=== PATIENT | male | born 1935 | race Asian ===

== ENCOUNTER 2020-02-11 16:19 | Inpatient (IN) | payer MEDICARE, MEDICAID ==
[~2020-02-11] VITALS: Ht 160 cm; Wt 63.0 kg
[2020-02-11 16:25] VITALS: BP 110/86
--- NOTE | 2020-02-11 16:28 | Emergency Room Report ---
History of Present Illness General Chief Complaint: Generalized Weakness Source: Patient, EMS Present Illness HPI Patient presents with 5 days of left upper quadrant pain. He has not been eating. He denies any vomiting or diarrhea. He has been moving his bowels but less so as he is not eating. He denies any fevers or chills. There is no sore throat, cough. In an assisted living facility. Patient denies pain to the triage nurse. Patient is unable to characterize pain or describe pain level. Patient has a history of diabetes, hypertension and cardiac disease. Patient takes oral hypoglycemics as well as insulin. POLST has selective treatment. No chest pain, palpitations, nausea, vomiting, diarrhea, dysuria, shortness of breath, joint pain, rashes, depression, anxiety, visual changes, dizziness, headache. Patient is a poor historian. Allergies: Coded Allergies: No Known Allergies (Unverified , 02/11/20) COVID-19 Screening Contact w/high risk pt: No Recent Travel to affected area: No Experienced COVID-19 symptoms?: No Patient History Limited by: medical condition Past Medical History: see triage record Social History: Denies: smoking, alcohol use, drug use Social History Narrative Assisted living Reviewed Nursing Documentation: PMH: Agreed; PSxH: Agreed Review of Systems All Other Systems: negative except mentioned in HPI Physical Exam Vital Signs Date Time Temp Pulse Resp B/P (MAP) Pulse Ox O2 Delivery O2 Flow Rate FiO2 02/11/20 16:10 96.4 110 20 110/86 (94) 95 Room Air Sp02 EP Interpretation: reviewed, normal General Appearance: well appearing, no apparent distress, alert, non-toxic, thin, Chronically Ill Head: normocephalic, atraumatic Eyes: bilateral eye normal inspection, bilateral eye PERRL, bilateral eye EOMI ENT: moist mucus membranes Neck: full range of motion, supple Respiratory: chest non-tender, lungs clear, normal breath sounds Cardiovascular #1: regular rate, rhythm, no edema Cardiovascular #2: 2+ radial (L) Gastrointestinal: normal inspection, normal bowel sounds, no mass, non- distended, no guarding, no rebound, tenderness - Minimal Genitourinary: no CVA tenderness Musculoskeletal: back normal, normal range of motion, gait/station normal Neurologic: alert, motor strength/tone normal, oriented - X2, sensory intact, speech normal, grossly normal Psychiatric: mood/affect normal Skin: no rash, warm/dry Procedures Critical Care Time Critical Care Time Total Critical Care Time: 30 min bedside evaluation and treatment excludes procedures (EKG). Reason for critical care: sepsis, pancreatitis, hyperglycemia Possible complications: hypotension, hypertension, ND, shock, arrhythmias, metabolic acidosis, end organ damage, respiratory failure. Interventions: fluid resuscitation, repeat evaluations, antibiotics, CT, ultrasound, discussion with family, repeat accucheck Course: Patient presents with abdominal pain, anorexia and tachycardia. Evaluation reveals leukocytosis and elevated lactic acid. Fluid resuscitation initiated. Antibiotics ordered to cover abdominal source. Repeat Accu-Cheks with improvement in hyperglycemia. Repeat evaluations with denial of pain. CT nonsurgical. Ultrasound nonsurgical. Discussion with family twice. Discussion with admitting physician. Repeat lactic acid normal. Consultations: nursing staff, EMS, family, admitting physician Performed by: Dr. Kelsey Tolerated well condition = serious Medical Decision Making Diagnostic Impression: Primary Impression: Sepsis Qualified Codes: A41.9 - Sepsis, unspecified organism; R65.20 - Severe sepsis without septic shock; N17.9 - Acute kidney failure, unspecified Additional Impressions: Abdominal pain Qualified Codes: R10.12 - Left upper quadrant pain Hyperglycemia ARF (acute renal failure) Qualified Codes: N17.9 - Acute kidney failure, unspecified Pancreatitis Qualified Codes: K85.90 - Acute pancreatitis without necrosis or infection, unspecified ER Course Patient presents with left upper quadrant pain and weakness with tachycardia. Differential includes diverticulitis, pancreatitis, urinary tract infection, acute myocardial infarction amongst others. Evaluation with EKG, chest x-ray, CT of the abdomen and pelvis with contrast and labs. Patient treated with IV hydration. Repeat evaluation to determine whether analgesia as needed. EKG sinus tachycardia rate [address]-T wave changes. Accucheck 365. Will recheck after bolus. Discussed with grandson. ARF. No contrast. Called 1825 - elevated lactic acid. Rest of 30 ml/kg bolus given, blood cultures ordered and antibiotics ordered. Capillary refill normal. Unchanged mentation. No hypotension. (Sepsis reevaluation.) Elevated lipase. Abd soft. 1835 After bolus, accucheck 201. 1938. CT no surgical pathology. Discussed with son again. Ordered ultrasound. Repeat lactic acid normal. Ultrasound no surgical pathology. Admitted stepdown unit Dr. Mccracken. Laboratory Tests Test 02/11/20 17:25 02/11/20 19:40 White Blood Count 16.3 K/UL (4.8-10.8) H Red Blood Count 3.28 M/UL (4.70-6.10) L Hemoglobin 10.3 G/DL (14.2-18.0) L Hematocrit 30.7 % (42.0-52.0) L Mean Corpuscular Volume 94 FL (80-99) Mean Corpuscular Hemoglobin 31.4 PG (27.0-31.0) H Mean Corpuscular Hemoglobin Concent 33.6 G/DL (32.0-36.0) Red Cell Distribution Width 12.3 % (11.6-14.8) Platelet Count 201 K/UL (150-450) Mean Platelet Volume 7.3 FL (6.5-10.1) Neutrophils (%) (Auto) 77.9 % (45.0-75.0) H Lymphocytes (%) (Auto) 8.9 % (20.0-45.0) L Monocytes (%) (Auto) 12.7 % (1.0-10.0) H Eosinophils (%) (Auto) 0.0 % (0.0-3.0) Basophils (%) (Auto) 0.6 % (0.0-2.0) Prothrombin Time 11.5 SEC (9.30-11.50) Prothrombin Time INR 1.1 (0.9-1.1) Activated Partial Thromboplast Time 24 SEC (23-33) Urine Color Pale yellow Urine Appearance Clear Urine pH 5 (4.5-8.0) Urine Specific [place] 1.010 (1.005-1.035) Urine Protein 1+ (NEGATIVE) H Urine Glucose (UA) 4+ (NEGATIVE) H Urine Ketones Negative (NEGATIVE) Urine Blood Negative (NEGATIVE) Urine Nitrite Negative (NEGATIVE) Urine Bilirubin Negative (NEGATIVE) Urine Urobilinogen Normal MG/DL (0.0-1.0) Urine Leukocyte Esterase Negative (NEGATIVE) Urine RBC 0-2 /HPF (0 - 0) H Urine WBC 0-2 /HPF (0 - 0) Urine Squamous Epithelial Cells None /LPF (NONE/OCC) Urine Bacteria Few /HPF (NONE) Urine Yeast Few /HPF (NONE) H Sodium Level 149 MMOL/L (136-145) H Potassium Level 4.3 MMOL/L (3.5-5.1) Chloride Level 110 MMOL/L (98-107) H Carbon Dioxide Level 25 MMOL/L (21-32) Anion Gap 14 mmol/L (5-15) Blood Urea Nitrogen 57 mg/dL (7-18) H Creatinine 2.1 MG/DL (0.55-1.30) H Estimated Glomerular Filtration Rate 30.3 mL/min (>60) Glucose Level 367 MG/DL (74-106) H Lactic Acid Level 5.30 mmol/L (0.4-2.0) H 1.80 mmol/L (0.66-2.22) Calcium Level 9.8 MG/DL (8.5-10.1) Phosphorus Level 4.3 MG/DL (2.5-4.9) Magnesium Level 3.1 MG/DL (1.8-2.4) H Total Bilirubin 1.4 MG/DL (0.2-1.0) H Direct Bilirubin 0.4 MG/DL (0.0-0.3) H Aspartate Amino Transferase (AST) 23 U/L (15-37) Alanine Aminotransferase (ALT) 31 U/L (12-78) Alkaline Phosphatase 77 U/L (46-116) Total Creatine Kinase 174 U/L (26-308) Troponin I 0.040 ng/mL (0.000-0.056) Pro-B-Type Natriuretic Peptide 755 pg/mL (0-125) H Total Protein 7.1 G/DL (6.4-8.2) Albumin 4.2 G/DL (3.4-5.0) Globulin 2.9 g/dL Albumin/Globulin Ratio 1.4 (1.0-2.7) Lipase 1070 U/L (73-393) H EKG Diagnostic Results Rate: tachycardiac Rhythm: NSR ST Segments: no acute changes Rhythm Strip Diag. Results EP Interpretation: yes Rhythm: no PVC's, no ectopy, other - Sinus tachycardia Chest X-Ray Diagnostic Results Chest X-Ray Diagnostic Results : Chest X-Ray Ordered: Yes # of Views/Limited/Complete: 1 View Indication: Other EP Interpretation: Yes Interpretation: no consolidation, no effusion, no pneumothorax Impression: No acute disease Electronically Signed by: Electronically signed by Jewel Kelsey MD CT/MRI/US Diagnostic Results CT/MRI/US Diagnostic Results #1: Imaging Test Ordered: abd/pelvis Impression Mild right basilar atelectasis. Calcified granulomas Coronary calcifications. Mild fatty liver. Subcentimeter right renal cyst. Negative for hydronephrosis. Normal appendix. Mild scattered colonic stool and diverticulosis. Negative for diverticulitis. Mild lumbar spine degenerative change. CT/MRI/US Diagnostic Results #2: Imaging Test Ordered: abd u/s Impression R renal cyst. No stones Last Vital Signs Date Time Temp Pulse Resp B/P (MAP) Pulse Ox O2 Delivery O2 Flow Rate FiO2 02/11/20 22:45 Room Air 02/11/20 22:01 88 02/11/20 21:38 97.8 20 139/83 97 Status: improved Disposition: ADMITTED INPATIENT Condition: Serious Jewel Kelsey MD Feb 11, 2020 16:28
[2020-02-11] MEDS ORDERED: Omnipaque-300 100ml vial INJ PRN (16:30)
--- NOTE | 2020-02-11 16:30 | NUR ---
ED Nurse Note: Patient brought in by ambulance from [facility] d/t generalized body weakness; decrease appetite x 1 week. Per EMS pt has no recent fever, nor cough/diarrhea/vomiting. Pt's on FULL CODE with selective treatment.
[2020-02-11] MEDS ORDERED: OYSTER SHELL 51 EAC2 PO (16:54)
[2020-02-11] MEDS ORDERED: RESTASIS1 EACH BOTH EYES (16:54)
[2020-02-11] MEDS ORDERED: LANTUS SOL100 UNIT/1 SUBQ (16:54)
[2020-02-11] MEDS ORDERED: CLOPIDOGREL75 MG ORAL (16:54)
[2020-02-11] MEDS ORDERED: ASPIR 8181 MG ORAL (16:54)
[2020-02-11] MEDS ORDERED: LOSARTAN POTASS25 MG ORAL (16:54)
[2020-02-11] MEDS ORDERED: FLUTICASONE PRO16 G1 NASAL (16:54)
[2020-02-11] MEDS ORDERED: FERROUS SULFAT325 MG ORAL (16:54)
[2020-02-11] MEDS ORDERED: AMLODIPINE BESYL5 MG ORAL (16:54)
[2020-02-11] MEDS ORDERED: PROBIOTIC1 EAC5 PO (16:54)
[2020-02-11] MEDS ORDERED: B COMPLEX1 EACH ORAL (16:54)
[2020-02-11] MEDS ORDERED: ATORVASTATIN CA10 MG ORAL (16:54)
[2020-02-11] MEDS ORDERED: CLOTRIMAZOLE15 GM TOPIC (16:54)
[2020-02-11] MEDS ORDERED: LYRICA75 M1 ORAL (16:54)
[2020-02-11] MEDS ORDERED: DOCUSATE SODIU100 MG ORAL (16:54)
[2020-02-11] MEDS ORDERED: MECLIZINE HCL25 MG ORAL (16:54)
[2020-02-11] MEDS ORDERED: ZYVOX600 MG ORAL (16:54)
[2020-02-11] MEDS ORDERED: PATADAY2.5 ML OP (16:54)
--- NOTE | 2020-02-11 17:08 | Diagnostic Imaging Report ---
Indication: Shortness of breath Technique: One view of the chest Comparison: none Findings: There is some atelectasis at the right lung base. Lungs and pleural spaces are otherwise clear. The heart size is normal. The aorta is tortuous ectatic and calcified. Impression: No acute process
--- NOTE | 2020-02-11 17:35 | NUR ---
ED Nurse Note: Urine and blood specimen collected and sent to lab. IV fluids running, N/S 1L. Will continue to monitor for results.
[2020-02-11 17:40] VITALS: BP 111/56
[2020-02-11 18:07] LABS: BASOPHILS % (AUTO) 0.6 % (0.0-2.0); HEMATOCRIT 30.7 % (42.0-52.0); HEMOGLOBIN 10.3 G/DL (14.2-18.0); LYMPHOCYTES % (AUTO) 8.9 % (20.0-45.0); MEAN CORPUSCULAR VOLUME 94 FL (80-99); MONOCYTES % (AUTO) 12.7 % (1.0-10.0); NEUTROPHILS % (AUTO) 77.9 % (45.0-75.0); PLATELET COUNT 201 K/UL (150-450); RED BLOOD COUNT 3.28 M/UL (4.70-6.10); RED CELL DISTRIBUTION WIDTH 12.3 % (11.6-14.8); WHITE BLOOD COUNT 16.3 K/UL (4.8-10.8)
[2020-02-11 18:10] LABS: APPEARANCE,URINE CLEAR; BILIRUBIN, URINE NEGATIVE (NEGATIVE); COLOR,URINE PALE YELLOW; GLUCOSE, URINE (UA) 4+ (NEGATIVE); KETONES,URINE NEGATIVE (NEGATIVE); LEUKOCYTE ESTERASE ,URINE NEGATIVE (NEGATIVE); NITRITE,URINE NEGATIVE (NEGATIVE); PH,URINE 5 (4.5-8.0); PROTEIN,URINE 1+ (NEGATIVE); UROBILINOGEN,URINE NORMAL MG/DL (0.0-1.0)
--- NOTE | 2020-02-11 18:12 | NUR ---
ED Nurse Note: Patient is resting with no complaints of pain at this time, tachycardia resolving while on fluids, Will continue to monitor for completion of bolus N/S for repeat Accucheck per ERMD.
[2020-02-11 18:13] LABS: INR 1.1 (0.9-1.1)
[2020-02-11 18:17] LABS: ANION GAP 14 mmol/L (5-15); BLOOD UREA NITROGEN 57 mg/dL (7-18); CALCIUM 9.8 MG/DL (8.5-10.1); CARBON DIOXIDE 25 MMOL/L (21-32); CHLORIDE 110 MMOL/L (98-107); CREATININE 2.1 MG/DL (0.55-1.30); POTASSIUM 4.3 MMOL/L (3.5-5.1); SODIUM 149 MMOL/L (136-145)
[2020-02-11 18:29] LABS: ALANINE AMINOTRANSFERASE 31 U/L (12-78); ALBUMIN 4.2 G/DL (3.4-5.0); ALBUMIN/GLOBULIN RATIO 1.4 (1.0-2.7); ALKALINE PHOSPHATASE 77 U/L (46-116); ASPARTATE AMINO TRANSFERASE 23 U/L (15-37); BILIRUBIN,TOTAL 1.4 MG/DL (0.2-1.0); CREATINE KINASE 174 U/L (26-308); PHOSPHORUS 4.3 MG/DL (2.5-4.9)
[2020-02-11 18:30] LABS: BILIRUBIN,DIRECT 0.4 MG/DL (0.0-0.3)
[2020-02-11] MEDS ORDERED: Piperacillin/Tazobactam 3.375 GM in NS 110 ML IVPB ONE (18:30)
--- NOTE | 2020-02-11 18:47 | NUR ---
ED Nurse Note: Patient went down for CT of abdomen and pelvis without constrast, accompanied by certified bench jeweler technician.
--- NOTE | 2020-02-11 18:55 | NUR ---
ED Nurse Note: Patient returned from CT without complication.
--- NOTE | 2020-02-11 19:15 | NUR ---
ED Nurse Note: received report from Angeline LANDEROS
--- NOTE | 2020-02-11 19:23 | Diagnostic Imaging Report ---
INDICATION: Abdominal pain TECHNIQUE: Continuous helical transaxial imaging of the abdomen and pelvis was obtained from the lung bases to the pubic symphysis. No intravenous contrast was administered. Coronal 2-D reformats were also obtained. Automatic Exposure Control was utilized. Total Dose length Product (DLP): [address] Dose Index Volume (CTDIvol): 4 mGy Comparison: none FINDINGS: Lungs: There is mild posterior basal reticular densities which may be due to a mild degree of scarring or fibrosis. There may be some atelectasis as well.. Liver: Unremarkable Gallbladder/biliary system: No gallstones are identified. There is no evidence of intrahepatic or extrahepatic biliary ductal dilatation. Spleen: Unremarkable Pancreas: Unremarkable Kidneys/Bladder: There is mild perinephric stranding. No renal stones or hydronephrosis are identified. Urinary bladder is unremarkable. Adrenal glands: Unremarkable Bowel: The appendix is normal. The second portion of the duodenum is dilated. There is also suggestion of a periduodenal stranding especially anterior to the right kidney. There is no abscess but the correlate clinically for duodenitis. Consider EGD. There is no free air. Aorta/IVC: The aorta is mildly enlarged in a diffuse fashion. There is calcification of the wall of aorta and iliac arteries. Peritoneum: There is no free fluid.. Bones: There is narrowing of intervertebral discs and accompanying endplate osteophyte formation. Hypertrophied facet joints also demonstrated. IMPRESSION: Dilatation of the second third portion of the duodenum with suggestion of possible periduodenal inflammation. Consider peptic ulcer disease. Duodenitis is not excluded. Consider further evaluation with upper endoscopy. Arterial vascular disease. Mild posterior basilar fibrosis within the lungs. Degenerative changes of the spine. Note: Evaluation of solid organs is limited on non contrast imaging. The CT scanner at [facility] is accredited by the [employer] and the scans are performed using dose optimization techniques as appropriate to a performed exam including Automatic Exposure control.
[2020-02-11 19:30] VITALS: BP 143/72
--- NOTE | 2020-02-11 20:00 | NUR ---
ED Nurse Note: US AT BEDSIDE
[2020-02-11] MEDS ORDERED: Morphine Sulfate 2mg/ml Inj(IV/IM USE ONLY) IVP PRN (20:15)
[2020-02-11] MEDS ORDERED: Nitroglycerin Subl 0.4mg tab SL PRN (20:15)
[2020-02-11] MEDS ORDERED: Acetaminophen 650 MG SUPP RECTAL PRN ×2 (20:15)
--- NOTE | 2020-02-11 20:51 | Diagnostic Imaging Report ---
Indication: Abdominal pain Technique: Grayscale and duplex Doppler imaging of the abdomen performed. Comparison: None Findings: The liver is increased echogenicity. Doppler interrogation of the main portal vein shows patency with hepatopedal, monophasic flow. There is no biliary ductal dilatation identified. Gallbladder is unremarkable. There demonstrated part of the pancreas, aorta and IVC show no definite abnormalities. Both kidneys appear unremarkable. There is no hydronephrosis. There is a small right renal cyst. IMPRESSION: Mild fatty liver Right renal cyst
[2020-02-11] MEDS ORDERED: Miralax 17gm pkt ORAL PRN (21:00)
[2020-02-11 21:38] VITALS: BP 143/72
--- NOTE | 2020-02-11 21:38 | NUR ---
TRANSFER TO FLOOR: Patient transferred to [facility] via [facility] in stable condition as ordered, per dr. Mccracken. Report given to Maya LANDEROS. Belongings sent with patient
--- NOTE | 2020-02-11 22:00 | NUR ---
NURSE NOTES: Pt received from ED, [facility] from [facility] d/t generalized body weakness; decrease appetite x 1 week and admitting dx of abdominal pain.Will input orders and carry out. Currently has NPO diet due to abdominal pain. Pt is alert and oriented on room air, resting in bed , bed is locked in lowest position, side rails x2, will continue to monitor
[2020-02-11] MEDS: NovoLOG Insulin Flexpen SUBQ SCH (23:00)
[2020-02-11] MEDS: Levemir Flexpen SUBQ SCH (23:00)
[2020-02-11] MEDS: Heparin 5000 units/ml inj SUBQ SCH (23:00)
[2020-02-12] MEDS: Piperacillin/Tazobactam 3.375 GM in NS 110 ML IVPB SCH ×5 (06:00→21:12)
[2020-02-12] MEDS: NovoLOG Insulin Flexpen SUBQ SCH ×4 (06:30→21:00)
[2020-02-12 07:24] LABS: BASOPHILS % (AUTO) 0.4 % (0.0-2.0); EOSINOPHILS % (AUTO) 0.3 % (0.0-3.0); HEMATOCRIT 23.9 % (42.0-52.0); HEMOGLOBIN 8.7 G/DL (14.2-18.0); LYMPHOCYTES % (AUTO) 18.7 % (20.0-45.0); MEAN CORPUSCULAR VOLUME 90 FL (80-99); MONOCYTES % (AUTO) 10.7 % (1.0-10.0); NEUTROPHILS % (AUTO) 69.9 % (45.0-75.0); PLATELET COUNT 141 K/UL (150-450); RED BLOOD COUNT 2.66 M/UL (4.70-6.10); RED CELL DISTRIBUTION WIDTH 10.9 % (11.6-14.8); WHITE BLOOD COUNT 10.3 K/UL (4.8-10.8)
--- NOTE | 2020-02-12 07:34 | NUR ---
HAND-OFF: Report given to LETI Gallardo.
[2020-02-12 07:44] LABS: ALANINE AMINOTRANSFERASE 26 U/L (12-78); ALBUMIN 3.2 G/DL (3.4-5.0); ALBUMIN/GLOBULIN RATIO 1.4 (1.0-2.7); ALKALINE PHOSPHATASE 58 U/L (46-116); ANION GAP 13 mmol/L (5-15); ASPARTATE AMINO TRANSFERASE 21 U/L (15-37); BILIRUBIN,TOTAL 1.1 MG/DL (0.2-1.0); BLOOD UREA NITROGEN 36 mg/dL (7-18); CALCIUM 8.1 MG/DL (8.5-10.1); CARBON DIOXIDE 23 MMOL/L (21-32); CHLORIDE 120 MMOL/L (98-107); CREATININE 1.4 MG/DL (0.55-1.30); POTASSIUM 3.8 MMOL/L (3.5-5.1); SODIUM 155 MMOL/L (136-145)
[2020-02-12 07:45] LABS: BILIRUBIN,DIRECT 0.4 MG/DL (0.0-0.3)
[2020-02-12] MEDS ORDERED: Pantoprazole Inj IV SCH (09:00)
[2020-02-12] MEDS: Flonase Nasal Inhaler 16gm NASAL SCH (09:00)
[2020-02-12] MEDS: Heparin 5000 units/ml inj SUBQ SCH (09:00)
[2020-02-12] MEDS: Meclizine 25mg tab ORAL SCH ×3 (10:09→19:01)
[2020-02-12] MEDS: Docusate 100mg cap ORAL SCH ×2 (10:10→19:00)
[2020-02-12] MEDS: Lyrica 50mg cap ORAL SCH ×2 (10:10→19:00)
[2020-02-12] MEDS: Losartan 25mg tab ORAL SCH (10:10)
[2020-02-12] MEDS ORDERED: 1/2NS w/KCl 20mEq 1000ml 1,000 ML IV SCH (13:00)
[2020-02-12] MEDS ORDERED: Nulytely 4L ORAL SCH (14:00)
--- NOTE | 2020-02-12 15:15 | NUR ---
CASE MANAGEMENT: INITIAL REVIEW 84YR OLD MALE BIBA FROM [facility] CC: BODY WEAKNESS X1 WEEK; DECREASE APPETITE SI: SEPSIS . ARF . HYPERGLYCEMIA . PANCREATITIS . ABDOMINAL PAIN 96.4 110 20 110/86 95% ON RA WBC 16.3 H/H 10.3/30.7 NA+ 149 CL-110 BUN 57 CREAT 2.1 MG 3.1 BNP 755 LIPASE 1070 IS:IVF NS BOLUS X2 IV FLAGYL X[address] ABD-possible periduodenal inflammation; Consider EGD US ABD- Subcentimeter right renal partially exophytic midpole cyst CHEST X-RAY- some atelectasis at the right lung base EKG sinus tachycardia rate [address]-T wave changes. \: 2E TELE UNIT DCP: [facility] WHEN STABLE PLAN: EGD IN AM CASE MANAGEMENT: REVIEW 02/12/20 SI: SEPSIS . ARF . HYPERGLYCEMIA . PANCREATITIS . ABDOMINAL PAIN 88 143/72% ON RA H/H 8.7/23.9 PLT 141 NA+ 155 CL-120 BUN 36 CREAT 1.4 CA+ 8.1 MG 3.1 BNP 755 LIPASE 1070 TSH 0.213 IS:IV ZOSYN Q8HR IV NS@125ML/HR COZAAR PO QD LYRICA PO BID NORVASC PO QD ANTIVERT PO TID NULYTELY PO X1 \: 2E TELE UNIT DCP: [facility] WHEN STABLE PLAN: EGD IN AM
[2020-02-12] MEDS ORDERED: D5 1/2NS w/KCl 20mEq 1,000 ML IV SCH (16:00)
--- NOTE | 2020-02-12 16:14 | History and Physical Report ---
DATE OF ADMISSION: 02/11/2020 CHIEF COMPLAINT AND REASON FOR HOSPITALIZATION: The patient admitted with some anorexia, abdominal discomfort, dehydration. HISTORY OF PRESENT ILLNESS: The patient is a resident of an assisted living facility, age 84 who comes in with some vague abdominal discomfort, poor oral intake for 10 days, dehydration, elevated lipase. He had imaging including CT scan in the emergency room, which showed dilation of the second and third portion of the duodenum with suggestion of possible sepideh duodenal inflammation. The liver was unremarkable. Because of the above, he was admitted to the hospital. There is a history of adult onset diabetes, hypertension, and a CVA about 2 years ago. There is a med list that accompanies his chart with note that he got linezolid 316 for 10 days, reason not clear. HABITS: He is a nondrinker and nonsmoker. SURGERIES: None. PAST MEDICAL HISTORY: As above taken from the family. MEDICATIONS: From the facility include clotrimazole betamethasone cream as needed, DSS 100 mg b.i.d., fluticasone nasal spray b.i.d. as needed, meclizine 25 mg t.i.d. as needed, MOM 30 mL p.r.n., pregabalin 50 mg b.i.d. as needed, amlodipine 5 mg daily, aspirin 81 mg daily, atorvastatin 10 mg daily, Plavix 75 mg daily, ferrous sulfate 325 b.i.d., Jardiance 25 mg daily, Lantus 15 units daily, losartan 25 mg b.i.d., Olopatadine 0.1% both eyes daily, calcium and vitamin D3 b.i.d., Restasis stasis eye drops b.i.d., vitamin B complex daily, vitamin D 1000 units daily, probiotic 1 daily. CODE STATUS: Per the son DNR. SYSTEM REVIEW: HEAD, EYES, EARS, NOSE, AND THROAT: History of taking eye drops as above. Apparently, the patient is stable. Hearing appears to be normal. ENDOCRINE: History of diabetes as above. No known thyroid disease. PULMONARY: No history of smoking, chronic cough, or asthma. CARDIAC: He is on cardiac medications as above. He is denying any chest pain. GASTROINTESTINAL: No history of hematochezia or melena. There is some anorexia and constipation. GENITOURINARY: No dysuria, hematuria, or kidney stones. 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 PHYSICAL EXAMINATION: GENERAL: The patient is alert, elderly man, lying in bed, in no acute distress. VITAL SIGNS: Blood pressure 143/72, pulse 88, most recent temperature 97.8, respirations 20. HEAD, EYES, EARS, NOSE, AND THROAT: Oral mucosa slightly dry. Sclerae are nonicteric. NECK: No adenopathy. LUNGS: Clear. HEART: Rhythm is regular. I hear no murmur. ABDOMEN: Soft without organomegaly. I am unable to feel liver or spleen. GENITOURINARY: Penis and testes normal. RECTAL: Deferred to GI technology applications consultant. EXTREMITIES: No edema, cyanosis, or clubbing. NEUROLOGIC: He is alert and responsive. Ocular motions intact in all directions. Smile symmetric. Tongue is midline. He moves all extremities. LABORATORY DATA: Pertinent labs on admission white count 16.3, hemoglobin 10.3, repeat white count 10.3, hemoglobin is 8.7. BUN 57, creatinine 2.1, repeat 36 and 1.4. Sodium 149, repeat is 155. Lactic acid 5.3, repeat 1.8. Calcium is 8.1. Bilirubin total 1.1 and direct 0.4. Troponin 0.04. Albumin 3.2. TSH 0.213, slightly low. Urinalysis shows few red cells, 0 to 2 white cells per high-power field. IMPRESSION: 1. Dehydration. 2. Abdominal pain, nonspecific. Rule out peptic ulcer disease. There is no obvious biliary obstruction or cholecystitis on imaging. 3. Anemia, rule out blood loss. 4. Diabetes, insulin dependent. 5. History of taking medicines, anti-platelet agents aspirin and Plavix. 6. History of CVA. 7. History of hypertension. PLAN: 1. Hydrate the patient intravenously. 2. Follow up on laboratories. 3. GI consultation in view of his complaints and anemia. Veto Mccracken M.D. DR: REED JOB#: [id number] CC:
--- NOTE | 2020-02-12 17:45 | Consultation ---
DATE OF CONSULTATION: 02/12/2020 CONSULTING PHYSICIAN: North Palacio M.D. REFERRING PHYSICIAN: Veto Mccracken M.D. CHIEF COMPLAINT: GI bleeding, abdominal pain. HISTORY OF PRESENT ILLNESS: Most of history is per chart. He is a pleasant 84-year-old [place] male with past medical history of diabetes, hypertension, presented to the hospital with complaint of abdominal pain. Workup showed evidence of anemia. CT showed evidence of possible duodenal ulceration ulceration. GI consult requested for evaluation. PAST MEDICAL HISTORY: 1. History of diabetes. 2. Hypertension. 3. History of coronary artery disease, the patient is on aspirin and Plavix. PAST SURGICAL HISTORY: Unknown. MEDICATIONS: Please see medication reconciliation list. SOCIAL HISTORY: There is no history of tobacco, alcohol, or drug abuse. FAMILY HISTORY: Noncontributory. REVIEW OF SYSTEMS: Limited. PHYSICAL EXAMINATION: VITAL SIGNS: The patient is afebrile, pulse is 88, respirations 20, blood pressure is 143/72. HEENT: Normocephalic and atraumatic. Mild pale conjunctivae. NECK: Supple. No evidence of obvious lymphadenopathy. CARDIOVASCULAR: Regular rate and rhythm. Plus S1 and S2. LUNGS: Decreased breath sounds bilaterally based on supine exam. ABDOMEN: Soft. Bowel sounds are present. Minimal tenderness to palpation in epigastric and right upper quadrant. No rebound. No guarding. No peritoneal sign. EXTREMITIES: No cyanosis. No clubbing. No edema. LABORATORY DATA: White count is 10, hemoglobin 8.7, hematocrit 23, platelet count is 141. ASSESSMENT AND PLAN: This is an 84-year-old male with GI bleeding, possible duodenal bleeding. Plan to give him a clear liquid diet today, NPO after midnight tonight. Plan to do endoscopy and colonoscopy tomorrow. I spoke with the family and son who consented and he agreed. Meanwhile, we will repeat labs tomorrow and transfuse if hemoglobin is less than 7.5. We will also place the patient on PPI. I want to thank, Dr. Mccracken for this kind referral. North Palacio M.D. DR: JEFFRY JOB#: [id number] CC: Veto Mccracken M.D.; Fax#: [phone]
[2020-02-12 20:00] VITALS: BP 142/86
--- NOTE | 2020-02-12 20:00 | NUR ---
NURSE NOTES: Pt is resting quietly in bed. Pt will be NPO after midnight for EGD and colonoscopy. Pt is alert and oriented on room air, resting in bed , bed is locked in lowest position, side rails x2, bed alarm on. Bedside commode at pt bedside will continue to monitor
[2020-02-12] MEDS: Levemir Flexpen SUBQ SCH (21:00)
[2020-02-12] MEDS: Pantoprazole Inj IV SCH (21:09)
[2020-02-13] VITALS (8 sets, daily range): BP systolic 107–141; BP diastolic 50–81
[2020-02-13] MEDS: Piperacillin/Tazobactam 3.375 GM in NS 110 ML IVPB SCH ×2 (06:24→13:58)
[2020-02-13] MEDS: NovoLOG Insulin Flexpen SUBQ SCH ×2 (06:30→11:30)
--- NOTE | 2020-02-13 06:41 | NUR ---
NURSE NOTES: Left message for Dr Palacio that pt was unable to finish bowel prep for colonoscopy scheduled for 10 am. Awaiting response.
--- NOTE | 2020-02-13 06:44 | NUR ---
NURSE NOTES: Camacho ORDERED STAT TAP WATER ENEMA, MG CITRATE TO AID IN BOWEL PREP. WILL ENDORSE TO ONCOMING SHIFT AND ENTER ORDERS
--- NOTE | 2020-02-13 06:59 | NUR ---
NURSE NOTES: PT HAD HYPOGLYCEMIC EPISODE, NPO, BLOOD GLUCOSE WAS 45. WILL ADMINISTER DEXTROSE 50 IVP AND REASSESS Addendum: 02/13/20 at 0803 by Margaret Carter RN PT IS ASYMPTOMATIC
--- NOTE | 2020-02-13 07:19 | NUR ---
NURSE NOTES: BLOOD GLUCOSE POST DEXTROSE IS 165 MG/DL. PT IS ASYMPTOMATIC
[2020-02-13 07:32] LABS: BASOPHILS % (AUTO) 0.6 % (0.0-2.0); EOSINOPHILS % (AUTO) 1.4 % (0.0-3.0); HEMATOCRIT 22.7 % (42.0-52.0); HEMOGLOBIN 8.1 G/DL (14.2-18.0); LYMPHOCYTES % (AUTO) 18.1 % (20.0-45.0); MEAN CORPUSCULAR VOLUME 90 FL (80-99); MONOCYTES % (AUTO) 9.9 % (1.0-10.0); PLATELET COUNT 140 K/UL (150-450); RED BLOOD COUNT 2.51 M/UL (4.70-6.10); RED CELL DISTRIBUTION WIDTH 10.9 % (11.6-14.8); WHITE BLOOD COUNT 8.9 K/UL (4.8-10.8)
[2020-02-13] MEDS ORDERED: Magnesium Citrate Liq Btl ORAL ONE (07:48)
[2020-02-13] MEDS ORDERED: Fleet's Enema 133ml RECTAL SCH (07:48)
--- NOTE | 2020-02-13 07:58 | NUR ---
HAND-OFF: Report given to CHAMP LANDEROS.
--- NOTE | 2020-02-13 08:03 | NUR ---
HAND-OFF: Report given to CHAMP LANDEROS.
[2020-02-13 08:16] LABS: ALANINE AMINOTRANSFERASE 29 U/L (12-78); ALBUMIN 2.9 G/DL (3.4-5.0); ALBUMIN/GLOBULIN RATIO 1.2 (1.0-2.7); ALKALINE PHOSPHATASE 57 U/L (46-116); ANION GAP 13 mmol/L (5-15); ASPARTATE AMINO TRANSFERASE 29 U/L (15-37); BLOOD UREA NITROGEN 21 mg/dL (7-18); CALCIUM 7.6 MG/DL (8.5-10.1); CARBON DIOXIDE 21 MMOL/L (21-32); CHLORIDE 118 MMOL/L (98-107); CREATININE 1.2 MG/DL (0.55-1.30); POTASSIUM 3.8 MMOL/L (3.5-5.1); SODIUM 152 MMOL/L (136-145)
--- NOTE | 2020-02-13 08:23 | NUR ---
NURSE NOTES: Received report from LETI Robles. Patient in bed resting, no active s/s cardiac, respiratory distress noticed at this time. Patient Aox4, on room air, Endorsed patient on NPO since midnight prior to procedure. IV on left AC 20g, left hand 22G, asymptomatic, patent, intact. Bed in lowest position, side rails upx3, call light within reach, bed alarm on. Will continue to monitor.
[2020-02-13] MEDS: Lyrica 50mg cap ORAL SCH (08:50)
[2020-02-13] MEDS: Meclizine 25mg tab ORAL SCH ×2 (08:50→13:56)
[2020-02-13] MEDS: Docusate 100mg cap ORAL SCH (08:50)
[2020-02-13] MEDS: Pantoprazole Inj IV SCH (08:50)
[2020-02-13] MEDS: Flonase Nasal Inhaler 16gm NASAL SCH (08:53)
[2020-02-13] MEDS: Losartan 25mg tab ORAL SCH (08:53)
[2020-02-13] MEDS ORDERED: Propofol 200mg/20ml IV ONE (09:30)
[2020-02-13] MEDS ORDERED: fentaNYL 100 mcg/2 mL IV ONE (09:41)
[2020-02-13] MEDS ORDERED: NS 500ML IVPB ONE (10:02)
--- NOTE | 2020-02-13 10:02 | Pre-Procedure Note/Attestation ---
Pre-Procedure Note/Attestation Complete Prior to Procedure Planned Procedure: not applicable Procedure Narrative: esophagogastroduodenoscopy and colonoscopy Indications for Procedure Pre-Operative Diagnosis: gib Attestation I attest that I discussed the nature of the procedure; its benefits; risks and complications; and alternatives (and the risks and benefits of such alternatives ), prior to the procedure, with the patient (or the patient's legal quality audit representative). I attest that, if there was a reasonable possibility of needing a blood transfusion, the patient (or the patient's legal quality audit representative) was given the [facility] standardized written summary, pursuant to the Jesse Juliana Blood Safety Act ([place] Health and Safety Code # 1645, as amended). I attest that I re-evaluated the patient just prior to the surgery and that there has been no change in the patient's H&P, except as documented below: North Palacio MD Feb 13, 2020 10:02
--- NOTE | 2020-02-13 10:23 | Anethesia Preoperative Eval ---
Anesthesia Pre-op PMH/ROS General Date of Evaluation: Feb 13, 2020 Time of Evaluation: 09:55 Anesthesiologist: Rizwana ASA Score: ASA 4 Mallampati Score Class I : Soft palate, uvula, fauces, pillars visible Class II: Soft palate, uvula, fauces visible Class III: Soft palate, base of uvula visible Class IV: Only hard plate visible Mallampati Classification: Class III Surgeon: Pia Diagnosis: Abdominal pain Surgical Procedure: EGD Colonoscopy Anesthesia History: none Family History: no anesthesia problems Allergies: Coded Allergies: No Known Allergies (Unverified , 02/11/20) Medications: see eMAR Patient NPO?: Yes Past Medical History Cardiovascular: Reports: HTN; Denies: CAD, [place], valve dz, arrhythmia, other Pulmonary: Denies: asthma, COPD, ELMER, other Gastrointestinal/Genitourinary: Reports: GERD; Denies: CRI, ESRD, other Neurologic/Psychiatric: Reports: dementia - mild, CVA Endocrine: Reports: DM, hypothyroidism; Denies: steroids, other HEENT: Denies: cataract (L), cataract (R), glaucoma, NIKOLAI (L), NIKOLAI (R), other Hematology/Immune: Reports: anemia; Denies: DVT, bleeding disorder, other Musculoskeletal/Integumentary: Reports: OA; Denies: RA, DJD, DDD, edema, other Other: other - manourished PMH Narrative: as above PSxH Narrative: see H&P Anesthesia Pre-op Phys. Exam Physician Exam Last Vital Signs Date Time Temp Pulse Resp B/P (MAP) Pulse Ox O2 Delivery O2 Flow Rate FiO2 02/13/20 08:53 141/63 02/13/20 08:53 74 02/13/20 08:00 97.8 18 97 02/12/20 21:00 Room Air Constitutional: NAD Neurologic: other - unable to obtainer Cardiovascular: RRR Respiratory: CTA Gastrointestinal: S/NT/ND Airway Exam Mallampati Score: Class III MO: limited Neck: stiff ROM: limited Teeth: missing Anesthesia Pre-op A/P Labs Hematology Test 02/13/20 06:42 White Blood Count 8.9 K/UL (4.8-10.8) Red Blood Count 2.51 M/UL (4.70-6.10) L Hemoglobin 8.1 G/DL (14.2-18.0) L Hematocrit 22.7 % (42.0-52.0) L Mean Corpuscular Volume 90 FL (80-99) Mean Corpuscular Hemoglobin 32.2 PG (27.0-31.0) H Mean Corpuscular Hemoglobin Concent 35.6 G/DL (32.0-36.0) Red Cell Distribution Width 10.9 % (11.6-14.8) L Platelet Count 140 K/UL (150-450) L Mean Platelet Volume 6.5 FL (6.5-10.1) Neutrophils (%) (Auto) 70.0 % (45.0-75.0) Lymphocytes (%) (Auto) 18.1 % (20.0-45.0) L Monocytes (%) (Auto) 9.9 % (1.0-10.0) Eosinophils (%) (Auto) 1.4 % (0.0-3.0) Basophils (%) (Auto) 0.6 % (0.0-2.0) Chemistry Test 02/13/20 06:42 Sodium Level 152 MMOL/L (136-145) H Potassium Level 3.8 MMOL/L (3.5-5.1) Chloride Level 118 MMOL/L (98-107) H Carbon Dioxide Level 21 MMOL/L (21-32) Anion Gap 13 mmol/L (5-15) Blood Urea Nitrogen 21 mg/dL (7-18) H Creatinine 1.2 MG/DL (0.55-1.30) Estimat Glomerular Filtration Rate 57.8 mL/min (>60) Glucose Level 51 MG/DL (74-106) L Calcium Level 7.6 MG/DL (8.5-10.1) L Total Bilirubin 1.0 MG/DL (0.2-1.0) Aspartate Amino Transf (AST/SGOT) 29 U/L (15-37) Alanine Aminotransferase (ALT/SGPT) 29 U/L (12-78) Alkaline Phosphatase 57 U/L (46-116) Total Protein 5.3 G/DL (6.4-8.2) L Albumin 2.9 G/DL (3.4-5.0) L Globulin 2.4 g/dL Albumin/Globulin Ratio 1.2 (1.0-2.7) Lipase 271 U/L (73-393) Risk Assessment & Plan Assessment: ASA 4 Plan: Osvaldo Holliday MD Feb 13, 2020 10:23
--- NOTE | 2020-02-13 10:29 | Endoscopy Procedure Note ---
Endoscopy Procedure Note General Indication for Procedure: anemia Procedures Performed: EGD, colonoscopy Operative Findings/Diagnosis: gastritis, colon polyp Specimen: yes Pt Tolerated Procedure Well: Yes Estimated Blood Loss: none Anesthesia Anesthesiologist: tati Anesthesia: MAC Inserted Devices Implant(s) used?: No Quality Quality of Bowel Preparation: Good Did scope reach the cecum?: Yes Was there any complications?: No GI Core Measures 50 yrs or older w/o bx or poly: Not Applicable 10yrs. F/U recommended: Not Applicable North Palacio MD Feb 13, 2020 10:29
--- NOTE | 2020-02-13 10:39 | Immediate Post-Op Evaluation ---
Immediate Post-Op Evalulation Immediate Post-Op Evalulation Procedure: EGD Colonoscopy Date of Evaluation: Feb 13, 2020 Time of Evaluation: 10:37 IV Fluids: 500 Blood Products: none Estimated Blood Loss: none Urinary Output: none Blood Pressure Systolic: 114 Blood Pressure Diastolic: 56 Pulse Rate: 68 Respiratory Rate: 20 O2 Sat by Pulse Oximetry: 99 Temperature (Fahrenheit): 97.3 Pain Score (1-10): 1 Nausea: No Vomiting: No Complications none Patient Status: reacts, patent, none Hydration Status: adequate Osvaldo Wagoner MD Feb 13, 2020 10:38
--- NOTE | 2020-02-13 11:11 | 48 Hour Post Anesthesia Eval ---
Post Anesthesia Evaluation Procedure: EGD Colonoscopy Date of Evaluation: Feb 13, 2020 Time of Evaluation: 11:10 Blood Pressure Systolic: 124 0: 76 Pulse Rate: 62 Respiratory Rate: 18 Temperature (Fahrenheit): 97.6 O2 Sat by Pulse Oximetry: 98 Airway: patent Nausea: No Vomiting: No Pain Intensity: 1 Cardiopulmonary Status: stable Mental Status/LOC: patient returned to baseline Follow-up Care/Observations: n /a Post-Anesthesia Complications: none Follow-up care needed: N/A Osvaldo Wagoner MD Feb 13, 2020 11:11
--- NOTE | 2020-02-13 11:18 | NUR ---
NURSE NOTES: Received report from LETI Robert. Endorsed patient tolerated procedure. No active s/s cardiac, respiratory distress noticed at this time.
[2020-02-13] MEDS ORDERED: PROTONIX40 MG ORAL (11:51)
--- NOTE | 2020-02-13 12:44 | Discharge Summary ---
DATE OF ADMISSION: 02/11/2020 DATE OF DISCHARGE: 02/13/2020 PERTINENT HISTORY: The patient presented with some vague abdominal discomfort, elevated lipase, and dehydration. There is a history of diabetes, prior CVA. PERTINENT PHYSICAL FINDINGS: See the dictated H and P. HEENT: Oral mucosa slightly dry. LUNGS: Clear. HEART: Regular rhythm. No murmur. ABDOMEN: Soft without organomegaly or focal tenderness. EXTREMITIES: No edema. COURSE IN THE HOSPITAL: The patient was hydrated. He had anemia and was seen by Dr. Palacio, in GI consultation. There was elevated lipase, but no definite pancreatitis on clinical exam and on imaging and there was no biliary obstruction and gallstones on imaging. The patient underwent an EGD and colonoscopy showed no duodenal ulcer, esophagitis, colonic polyps. It was felt that he was safe to be discharged on PPI and follow up by his prior to admission physician. FINAL DIAGNOSES: 1. Esophagitis. 2. Anemia, possibly anemia secondary to blood loss. 3. Dehydration. 4. Diabetes. 5. History of prior CVA. 6. Hypernatremia. 7. History of multiple medications on admission. DISCHARGE DISPOSITION: Back to the assisted living facility. DIET: No concentrated sweets diet. MEDICATIONS: Per the discharge medication list. FOLLOWUP: Follow up with his prior to admission physician. Veto Mccracken M.D. DR: TANMAY JOB#: [id number] CC:
--- NOTE | 2020-02-13 12:56 | NUR ---
NURSE NOTES: Called [facility], tele : [phone] informed regarding new prescription.
--- NOTE | 2020-02-13 16:00 | NUR ---
NURSE NOTES: Patient discharged per Dr. Mccracken. Ambulance called per Dr. Mccracken. Called Assisted living to confirming prescription. Patient discharged with all belonging. ID removed and placed in shredder, IV removed, disability advocate returned to chemical radiation technician. Patient discharged in a stable condition, family member made aware.
--- NOTE | 2020-02-13 17:00 | Procedure Note ---
DATE OF PROCEDURE: 02/13/2020 SURGEON: North Palacio M.D. REFERRING PHYSICIAN: Veto Mccracken M.D. PROCEDURE: Upper endoscopy with biopsy and colonoscopy with snare polypectomy. ANESTHESIA: Per Dr. Wagoner. INSTRUMENT: Olympus adult flexible upper endoscope and colonoscope. INDICATION: Anemia and GI bleeding. REASON FOR PROCEDURE: The procedure, risks, benefits, and possible consequences, including hemorrhage, aspiration, perforation and infection, and alternative treatments, were explained to the patient/legal guardian by Dr. North Palacio and the patient/legal guardian understood and accepted these risks. DESCRIPTION OF PROCEDURE: After informed consent was obtained and the patient was adequately sedated, Olympus upper endoscope was advanced from mouth into the second portion of the duodenum and retroflexion was performed in the stomach. The patient had peeling off of the mucosa in the distal esophagus suggestive of esophagitis without any obvious ulcerations or bleeding. The patient has evidence of small hiatal hernia. In the stomach, there was diffuse gastritis. Random biopsy from antrum was obtained to rule out H. pylori infection. There was no evidence of any ulcerations seen up to about third portion of the duodenum. At this time, the upper endoscope was retrieved and the patient was turned over for colonoscopy. First, rectal exam was performed, which was positive for internal hemorrhoids. Then, the scope was advanced from the rectum into the cecum, then subsequently to terminal ileum. Quality of prep was good. The patient had one sessile polyp in the ascending colon, measured roughly about 6 mm, removed with hot snare polypectomy technique. No further polyp was seen in this colonoscopy examination. Retroflexion of rectum showed evidence of internal hemorrhoids. SUMMARY OF FINDINGS: 1. Peeling off of the mucosa in the distal esophagus suggestive of esophagitis. 2. Small hiatal hernia. 3. Gastritis, status post biopsy. 4. Internal hemorrhoids. 5. One colonic polyp removed, see above for details. RECOMMENDATIONS: 1. Follow pathology. 2. Reflux measures. 3. PPI daily given esophagitis. 4. Repeat colonoscopy in five years. 5. Resume diet. 6. Discharge planning per primary team. 7. The patient needs outpatient followup for further workup of anemia. I want to thank Dr. Mccracken for this kind referral. North Marla Palacio DR: TRACY JOB#: [id number] CC:
--- NOTE | 2020-02-13 19:30 | NUR ---
HAND-OFF: Report given to LETI Wild. Endorsed plan of care. Addendum: 02/13/20 at 1956 by CHAMP MORENO RN wrong patient patient already discharged.
== END 2020-02-13 18:14 | disposition home or self-care (01) | DRG 392 ==
LOC: EDBD 16:19 → EMR 16:54 → 2E 17:05 → EDBEDREQSVC 18:27 → EDBEDREQ 18:27
PROC: 0DBK8ZZ Excision of Ascending Colon, Via Natural or Artificial Opening Endoscopic (ICD-10-PCS; principal; 2020-02-11)
PROC: 0DB78ZX Excision of Stomach, Pylorus, Via Natural or Artificial Opening Endoscopic, Diagnostic (ICD-10-PCS; principal; 2020-02-11)
DX: K20.9 Esophagitis, unspecified (principal); I69.354 Hemiplegia and hemiparesis following cerebral infarction affecting left non-dominant side; E86.0 Dehydration; R63.0 Anorexia; D12.2 Benign neoplasm of ascending colon; K44.9 Diaphragmatic hernia without obstruction or gangrene; K29.60 Other gastritis without bleeding; K64.8 Other hemorrhoids; Z79.02 Long term (current) use of antithrombotics/antiplatelets; Z79.4 Long term (current) use of insulin; Z66 Do not resuscitate; D50.0 Iron deficiency anemia secondary to blood loss (chronic)
CPT/HCPCS: 36415; 71045; 74176; 76700; 80053; 81003; 82248; 82550; 83605; 83690; 83735; 83880; 84100; 84443; 84484; 85025; 85610; 85730; 86850; 86900; 86901; 87040; 87081; 87086; 87181; 93005; 94003; 94150; 96361; 96365; 96368; 99291; J1815; J7030; S5561